=== PATIENT | female | born 1990 | race African-American/Black ===

== ENCOUNTER 2017-10-13 11:06 | Observation (INO) | payer MEDICARE, OTHER ==
[~2017-10-13] VITALS: Ht 167.6 cm; Wt 77.6 kg
[~2017-10-13 11:06] MED LIST: CIPRO500 MG OR; GLIPIZIDE5 M2 PO; GLUCOPHAGE500 MG PO; LEVEMIR FLEXPEN SC; NAPROSYN500 MG PO
[2017-10-13] MEDS ORDERED: ZOFRAN ODT4 MG PO (11:34)
[2017-10-13] MEDS ORDERED: NEXIUM40 M1 PO (11:34)
[2017-10-13 11:52] LABS: HEMATOCRIT 39.7 % (37.0-47.0); IMMATURE GRANULOCYTES 0.5 % (0.0-1.0); MEAN CELL VOLUME 90.8 fL CALC (80.0-100.0); MEAN CORPUSCULAR HGB 29.7 pG CALC (26.0-32.0); MEAN CORPUSCULAR HGB CONC 32.7 g/L CALC (32.0-36.0); NEUT# 14.67 thou/uL (2.00-7.15); RED BLOOD COUNT 4.37 mill/uL (4.20-5.60); RED CELL DISTRI WIDTH 13.1 % (11.5-15.5)
[2017-10-13 12:11] LABS: ALBUMIN 3.8 g/dL (3.2-5.0); ALKALINE PHOSPHATASE 114 u/l (38-126); ANION GAP 20 (6-22 (CALC)); BILIRUBIN, TOTAL 0.6 mg/dL (0.0-1.4); BUN 13 mg/dL (7-17); BUN/CREATININE RATIO 22 (12-20 (CALC)); CARBON DIOXIDE 21 mmol/l (22-30); CHLORIDE 98 mmol/l (95-108); CREATININE 0.6 mg/dL (0.5-1.0); GFR > 60 ML/MIN (>=60 (CALC)); GFR FOR AFR.AMER. > 60 ML/MIN (>=60 (CALC)); POTASSIUM 4.4 mmol/l (3.5-5.1); SGOT/AST 10 u/l (14-36); SGPT/ALT 25 u/l (9-52); SODIUM 134 mmol/l (137-146); TOTAL PROTEIN 7.4 g/dL (6.3-8.2)
[2017-10-13] MEDS ORDERED: LEVEMIR FL100 UNIT/M SC (13:36)
[2017-10-13 14:00] VITALS: BP 123/85
[2017-10-13 14:09] LABS: URINE BILIRUBIN - DIPSTICK NEGATIVE (NEGATIVE); URINE BLOOD DIPSTICK MODERATE (NEGATIVE); URINE COLOR YELLOW; URINE GLUCOSE - DIPSTICK 100 mg/dL (NEGATIVE); URINE KETONE 40 mg/dL (NEGATIVE); URINE PROTEIN - DIPSTICK 30 mg/dL (NEG-TRACE); URINE SPECIFIC GRAVITY 1.025; URINE UROBILINOGEN - DIPSTICK 0.2 E.U./dL (0.2)
[2017-10-13 14:10] LABS: URINE CLARITY CLOUDY; URINE NITRITE - DIPSTICK POSITIVE (Negative)
[2017-10-13 14:11] LABS: URINE LEUK ESTERASE TRACE (NEGATIVE)
[2017-10-13 14:16] LABS: URINE BACTERIA MANY hpf; URINE EPITHELIAL CELLS FEW EPI/hpf (0-FEW); URINE WBC 50-100 WBC/hpf (0-5)
[2017-10-13 18:13] LABS: CHOLESTEROL HDL RATIO 3.4 (<4.4 (CALC)); MAGNESIUM 1.5 mg/dL (1.6-2.3)
[2017-10-13 19:30] VITALS: BP 113/76; BP 162/82
[2017-10-14 04:30] VITALS: BP 101/63
[2017-10-14 05:51] LABS: HEMATOCRIT 34.5 % (37.0-47.0); HEMOGLOBIN 11.5 g/dl (12.0-16.0); IMMATURE GRANULOCYTES 0.4 % (0.0-1.0); MEAN CELL VOLUME 91.5 fL CALC (80.0-100.0); MEAN CORPUSCULAR HGB 30.5 pG CALC (26.0-32.0); MEAN CORPUSCULAR HGB CONC 33.3 g/L CALC (32.0-36.0); NEUT# 8.93 thou/uL (2.00-7.15); RED BLOOD COUNT 3.77 mill/uL (4.20-5.60); RED CELL DISTRI WIDTH 13.3 % (11.5-15.5)
[2017-10-14 06:02] LABS: ANION GAP 15 (6-22 (CALC)); BUN 12 mg/dL (7-17); BUN/CREATININE RATIO 19 (12-20 (CALC)); CARBON DIOXIDE 23 mmol/l (22-30); CHLORIDE 105 mmol/l (95-108); CREATININE 0.6 mg/dL (0.5-1.0); GFR > 60 ML/MIN (>=60 (CALC)); GFR FOR AFR.AMER. > 60 ML/MIN (>=60 (CALC)); MAGNESIUM 1.7 mg/dL (1.6-2.3); POTASSIUM 3.8 mmol/l (3.5-5.1); SODIUM 140 mmol/l (137-146)
[2017-10-14 07:46] VITALS: BP 108/66
[2017-10-14] MEDS ORDERED: KEFLEX500 M1 PO (13:19)
[2017-10-14] MEDS ORDERED: CIPROFLOXACN500 MG PO (21:42)
== END 2017-10-14 14:00 | disposition home or self-care (01) ==
LOC: ED 11:06 → ED-I 13:14 → ED 13:27 → MS2 13:28
PROVIDERS: Emergency Medicine; Nurse Practitioner Family; ADMIT Internal Medicine; ATTEND Internal Medicine
DX: E10.65 Type 1 diabetes mellitus with hyperglycemia (principal); E86.0 Dehydration; N39.0 Urinary tract infection, site not specified; F79 Unspecified intellectual disabilities; B96.20 Unspecified Escherichia coli [E. coli] as the cause of diseases classified elsewhere; Z91.14 Patient's other noncompliance with medication regimen; Z79.4 Long term (current) use of insulin

== ENCOUNTER 2017-10-14 19:11 | Emergency (ER) | payer MEDICARE, OTHER ==
[~2017-10-14] VITALS: Ht 167.6 cm; Wt 79.6 kg
[~2017-10-14 19:11] MED LIST changes: +KEFLEX500 M1 PO; +LEVEMIR FL100 UNIT/M SC; +NEXIUM40 M1 PO; +ZOFRAN ODT4 MG PO
[2017-10-14 20:10] LABS: HEMATOCRIT 38.9 % (37.0-47.0); HEMOGLOBIN 12.6 g/dl (12.0-16.0); IMMATURE GRANULOCYTES 0.4 % (0.0-1.0); MEAN CELL VOLUME 92.2 fL CALC (80.0-100.0); MEAN CORPUSCULAR HGB 29.9 pG CALC (26.0-32.0); MEAN CORPUSCULAR HGB CONC 32.4 g/L CALC (32.0-36.0); NEUT# 8.55 thou/uL (2.00-7.15); RED BLOOD COUNT 4.22 mill/uL (4.20-5.60); RED CELL DISTRI WIDTH 13.5 % (11.5-15.5)
[2017-10-14 20:11] LABS: URINE BILIRUBIN - DIPSTICK NEGATIVE (NEGATIVE); URINE BLOOD DIPSTICK SMALL (NEGATIVE); URINE COLOR YELLOW; URINE GLUCOSE - DIPSTICK NEGATIVE (NEGATIVE); URINE KETONE 15 mg/dL (NEGATIVE); URINE NITRITE - DIPSTICK NEGATIVE (Negative); URINE PROTEIN - DIPSTICK NEGATIVE (NEG-TRACE); URINE UROBILINOGEN - DIPSTICK 0.2 E.U./dL (0.2)
[2017-10-14 20:14] LABS: URINE CLARITY CLEAR; URINE LEUK ESTERASE SMALL (NEGATIVE)
[2017-10-14 20:15] LABS: ALBUMIN 3.9 g/dL (3.2-5.0); ALKALINE PHOSPHATASE 96 u/l (38-126); ANION GAP 18 (6-22 (CALC)); BILIRUBIN, TOTAL 0.3 mg/dL (0.0-1.4); BUN 13 mg/dL (7-17); BUN/CREATININE RATIO 19 (12-20 (CALC)); CARBON DIOXIDE 23 mmol/l (22-30); CHLORIDE 104 mmol/l (95-108); CREATININE 0.7 mg/dL (0.5-1.0); GFR > 60 ML/MIN (>=60 (CALC)); GFR FOR AFR.AMER. > 60 ML/MIN (>=60 (CALC)); POTASSIUM 3.7 mmol/l (3.5-5.1); SGOT/AST 17 u/l (14-36); SGPT/ALT 28 u/l (9-52); SODIUM 142 mmol/l (137-146); TOTAL PROTEIN 7.9 g/dL (6.3-8.2)
[2017-10-14 20:22] LABS: URINE BACTERIA FEW hpf; URINE RBC 0-2 RBC/hpf (0-5); URINE SQUAMOUS EPITHELIAL CELL RARE EPI/hpf (0-FEW); URINE WBC 20-50 WBC/hpf (0-5)
[2017-10-14 21:40] VITALS: BP 129/73
[2017-10-14] MEDS ORDERED: CIPROFLOXACN500 MG PO (21:42)
== END 2017-10-14 21:40 | disposition home or self-care (01) ==
LOC: ED 19:11
PROVIDERS: Emergency Medicine
DX: N39.0 Urinary tract infection, site not specified (principal); E11.9 Type 2 diabetes mellitus without complications

== ENCOUNTER 2017-12-21 14:51 | Emergency (ER) | payer MEDICARE, OTHER ==
[~2017-12-21] VITALS: Ht 167.6 cm; Wt 70.0 kg
[~2017-12-21 14:51] MED LIST changes: +CIPROFLOXACN500 MG PO
[2017-12-21] MEDS ORDERED: CLEOCIN300 MG PO (15:12)
[2017-12-21 15:16] VITALS: BP 128/56
== END 2017-12-21 15:18 | disposition home or self-care (01) ==
LOC: ED 14:51
DX: L02.424 Furuncle of left upper limb (principal)

== ENCOUNTER 2018-02-14 09:14 | Emergency (ER) | payer MEDICARE, OTHER ==
[~2018-02-14] VITALS: Ht 167.6 cm; Wt 68.0 kg
[~2018-02-14 09:14] MED LIST changes: +CLEOCIN300 MG PO
[2018-02-14 10:24] VITALS: BP 112/81
== END 2018-02-14 10:24 | disposition home or self-care (01) ==
LOC: ED 09:14
DX: M79.671 Pain in right foot (principal)

== ENCOUNTER 2018-06-08 13:04 | Emergency (ER) | payer MEDICARE, MEDICAID ==
[~2018-06-08] VITALS: Ht 167.6 cm; Wt 72.6 kg
[2018-06-08] MEDS ORDERED: TORADOL PO (14:10)
[2018-06-08 14:29] VITALS: BP 111/74
== END 2018-06-08 14:29 | disposition home or self-care (01) ==
LOC: ED 13:04
DX: S63.502A Unspecified sprain of left wrist, initial encounter (principal); W17.89XA Other fall from one level to another, initial encounter; Y93.I9 Activity, other involving external motion; Y92.009 Unspecified place in unspecified non-institutional (private) residence as the place of occurrence of the external cause

== ENCOUNTER 2018-12-28 15:18 | Emergency (ER) | payer MEDICARE, OTHER ==
[~2018-12-28] VITALS: Ht 167.6 cm; Wt 68.0 kg
[~2018-12-28 15:18] MED LIST changes: +TORADOL PO
[2018-12-28] MEDS ORDERED: METFORMIN500 MG PO (15:43)
[2018-12-28] MEDS ORDERED: GLIPIZIDE5 M2 PO (15:43)
[2018-12-28] MEDS ORDERED: AUGMENTIN500TAB PO (16:13)
[2018-12-28] MEDS ORDERED: CORTISPORIN OTI10 M2 AU (16:13)
[2018-12-28 16:20] VITALS: BP 118/80
== END 2018-12-28 16:20 | disposition home or self-care (01) ==
LOC: ED 15:18
DX: H60.92 Unspecified otitis externa, left ear (principal); H66.92 Otitis media, unspecified, left ear; E11.9 Type 2 diabetes mellitus without complications; Z79.4 Long term (current) use of insulin

== ENCOUNTER 2019-04-25 10:06 | Emergency (ER) | payer MEDICARE, OTHER ==
[~2019-04-25] VITALS: Ht 167.6 cm; Wt 71.0 kg
[~2019-04-25 10:06] MED LIST changes: +AUGMENTIN500TAB PO; +CORTISPORIN OTI10 M2 AU; +METFORMIN500 MG PO
[2019-04-25] MEDS ORDERED: IBUPROFEN600 MG PO (11:24)
[2019-04-25 11:33] VITALS: BP 112/63
== END 2019-04-25 11:33 | disposition home or self-care (01) ==
LOC: ED 10:06
DX: S90.31XA Contusion of right foot, initial encounter (principal); M21.611 Bunion of right foot; W17.89XA Other fall from one level to another, initial encounter; Y93.I9 Activity, other involving external motion

== ENCOUNTER 2019-05-18 09:55 | Inpatient (IN) | payer MEDICARE, MEDICAID ==
[~2019-05-18] VITALS: Ht 167.6 cm; Wt 75.0 kg
[2019-05-18] VITALS (9 sets, daily range): BP systolic 100–124; BP diastolic 56–85
[~2019-05-18 09:55] MED LIST changes: +IBUPROFEN600 MG PO
--- NOTE | 2019-05-18 10:11 | NUR ---
PATIENT AMBULATED TO ROOM WITH STEADY GAIT AND PHYSICIAN NOTIFIED OF PATIENT STATUS
[2019-05-18 10:44] LABS: HEMATOCRIT 43.4 % (37.0-47.0); HEMOGLOBIN 13.8 g/dl (12.0-16.0); IMMATURE GRANULOCYTES 0.4 % (0.0-5.0); MEAN CELL VOLUME 92.3 fL CALC (80.0-100.0); MEAN CORPUSCULAR HGB 29.4 pG CALC (26.0-32.0); MEAN CORPUSCULAR HGB CONC 31.8 g/L CALC (32.0-36.0); RED BLOOD COUNT 4.7 mill/uL (4.20-5.60); RED CELL DISTRI WIDTH 12.9 % (11.5-15.5)
--- NOTE | 2019-05-18 10:50 | NUR ---
IVF INFUSING TO LAC AT THIS TIME; PO FLUIDS GIVEN; MONITORING DEVICES IN PLACE; VSS; WILL CONTINUE TO MONITOR
[2019-05-18 10:57] LABS: HCG SERUM/URINE (NEG/POS) NEGATIVE (NEGATIVE)
[2019-05-18 11:00] LABS: ALBUMIN 4.6 g/dL (3.2-5.0); ALKALINE PHOSPHATASE 110 u/l (38-126); BILIRUBIN, TOTAL 0.5 mg/dL (0.0-1.4); BUN 15 mg/dL (7-17); BUN/CREATININE RATIO 19 (12-20 (CALC)); CHLORIDE 99 mmol/l (95-108); CREATININE 0.8 mg/dL (0.5-1.0); GFR > 60 ML/MIN (>=60 (CALC)); GFR FOR AFR.AMER. > 60 ML/MIN (>=60 (CALC)); LIPASE 62 u/l (23-300); SODIUM 133 mmol/l (137-146)
[2019-05-18 11:12] LABS: ANION GAP 30 (6-22 (CALC)); SGOT/AST 23 u/l (14-36)
[2019-05-18 11:15] LABS: CARBON DIOXIDE 9 mmol/l (22-30)
[2019-05-18 12:58] LABS: URINE BILIRUBIN - DIPSTICK NEGATIVE (NEGATIVE); URINE BLOOD DIPSTICK NEGATIVE (NEGATIVE); URINE COLOR YELLOW; URINE GLUCOSE - DIPSTICK 500 mg/dL (NEGATIVE); URINE KETONE >=80 mg/dL (NEGATIVE); URINE LEUK ESTERASE NEGATIVE (NEGATIVE); URINE NITRITE - DIPSTICK NEGATIVE (Negative); URINE PROTEIN - DIPSTICK NEGATIVE (NEG-TRACE); URINE SPECIFIC GRAVITY 1.025; URINE UROBILINOGEN - DIPSTICK 0.2 E.U./dL (0.2)
--- NOTE | 2019-05-18 13:07 | NUR ---
ER DEPT [employer]LE[employer] COMPUTING SOFTWARE ENGINEER REQUESTED I TAKE REPORT NOW AND THEY WILL HOLD PT UNTIL ORDERS GET PLACED. REPORT RECVD FROM FLORENCE DONAHUE.
[2019-05-18 13:12] LABS: ANION GAP 26 (6-22 (CALC)); BUN 13 mg/dL (7-17); BUN/CREATININE RATIO 18 (12-20 (CALC)); CHLORIDE 100 mmol/l (95-108); CREATININE 0.7 mg/dL (0.5-1.0); GFR > 60 ML/MIN (>=60 (CALC)); GFR FOR AFR.AMER. > 60 ML/MIN (>=60 (CALC)); POTASSIUM 5.1 mmol/l (3.5-5.1); SODIUM 135 mmol/l (137-146)
--- NOTE | 2019-05-18 13:13 | NUR ---
PT TO ICU4 BY STRETCHER WITH TELE & IV INSULIN AND NS. PT ABLE TO TRANSFER TO NEW BED. PLACED ON MONITORS. EDUCATED ON CALLBELL & BED CONTROLS.
--- NOTE | 2019-05-18 13:15 | NUR ---
Admission Note Report Given to: FLORENCE HUMMEL Transported by: Wheelchair X Stretcher Transported with: X Nurse Transporter X Patent IV O2 X Drug Abuse Social Worker Location: X ICU MS2
[2019-05-18 13:27] LABS: CARBON DIOXIDE 14 mmol/l (22-30)
--- NOTE | 2019-05-18 13:58 | NUR ---
DR WERNER @BEDSIDE; ASSESSING PT & DISCUSSING POC. CALLED [facility] FOR NAME OF RECENT RX x2 BUT THEY SAY SHE HASNT USED THEIR PHARMACY SINCE 2017.
--- NOTE | 2019-05-18 15:45 | NUR ---
ACCEDGARD 245, ESTABLISHED 2ND IV SITE #22 TO LW.
--- NOTE | 2019-05-18 16:48 | NUR ---
2 FEMALE VISITORS @BEDSIDE.
[2019-05-18 17:09] LABS: BUN 11 mg/dL (7-17); BUN/CREATININE RATIO 20 (12-20 (CALC)); CHLORIDE 104 mmol/l (95-108); CREATININE 0.5 mg/dL (0.5-1.0); GFR > 60 ML/MIN (>=60 (CALC)); GFR FOR AFR.AMER. > 60 ML/MIN (>=60 (CALC)); SODIUM 137 mmol/l (137-146)
--- NOTE | 2019-05-18 17:09 | NUR ---
PT DISCONNECTED FROM MONITORS TO USE BATHROOM. PT HAD STEADY GAIT, PUSHING IV POLE.
[2019-05-18 17:11] LABS: ANION GAP 18 (6-22 (CALC)); CARBON DIOXIDE 19 mmol/l (22-30)
--- NOTE | 2019-05-18 18:05 | NUR ---
EXPLAINED TO MOM & GRANDMA & PT ABOUT NPO WHILE ON INSULIN DRIP. PT GIVEN PITCHER OF WATER & TRINIDAD ASHBY. ANSWERED QUESTIONS ABOUT TEST RESULTS.
--- NOTE | 2019-05-18 19:25 | NUR ---
REPORT GIVEN BY SHAHEED HENRIQUEZ. PATIENT RESTING IN BED WATCHING TV, FAMILY PRESENT AT BEDSIDE. RESP EVEN AND UNLABORED, PRODUCTIVE COUGH PRESENT. INSULIN AND IV FLUIDS INFUSING. NO S/S OF DISTRESS NOTED. PLAN OF CARE DISCUSSED. PATIENT INFORMED TO CALL WITH ANY QUESTIONS OR CONCERNS. FALL PRECAUTIONS IN PLACE. ASSESMENT COMPLETED AT THIS TIME.
--- NOTE | 2019-05-18 19:47 | NUR ---
ACCU CHECK= 167, AG=14, K=4. IV FLUIDS CHANGED TO D5 1/2 NS AND INSULIN DRIP CHANGED TO 2 UNITS.
[2019-05-18 20:36] LABS: ANION GAP 17 (6-22 (CALC)); BUN 11 mg/dL (7-17); BUN/CREATININE RATIO 20 (12-20 (CALC)); CARBON DIOXIDE 21 mmol/l (22-30); CHLORIDE 103 mmol/l (95-108); CREATININE 0.6 mg/dL (0.5-1.0); GFR > 60 ML/MIN (>=60 (CALC)); GFR FOR AFR.AMER. > 60 ML/MIN (>=60 (CALC)); POTASSIUM 3.8 mmol/l (3.5-5.1); SODIUM 137 mmol/l (137-146)
--- NOTE | 2019-05-18 20:50 | NUR ---
FLUIDS STOPPED PER MD ORDER.
--- NOTE | 2019-05-18 22:24 | NUR ---
INSULIN DRIP TURNED OFF AT 2224 PER MD ORDERS.
--- NOTE | 2019-05-18 23:42 | NUR ---
PATIENT RESTING WITH EYES CLOSED. RESP EVEN AND UNLABORED. NO S/S OF DISTRESS NOTED.
[2019-05-19] VITALS (9 sets, daily range): BP systolic 100–131; BP diastolic 60–70
--- NOTE | 2019-05-19 02:11 | NUR ---
PATIENT RESTING WITH EYES CLOSED. RESP EVEN AND UNLABORED. NO S/S OF DISTRESS NOTED.
--- NOTE | 2019-05-19 05:37 | NUR ---
PATIENT STATES SHE IS FEELING MUCH BETTER THIS MORNING. RESP EVEN AND UNLABORED. NO S/S OF DISTRESS NOTED.
[2019-05-19 06:32] LABS: ANION GAP 15 (6-22 (CALC)); BUN 14 mg/dL (7-17); BUN/CREATININE RATIO 29 (12-20 (CALC)); CARBON DIOXIDE 22 mmol/l (22-30); CHLORIDE 104 mmol/l (95-108); CREATININE 0.5 mg/dL (0.5-1.0); GFR > 60 ML/MIN (>=60 (CALC)); GFR FOR AFR.AMER. > 60 ML/MIN (>=60 (CALC)); MAGNESIUM 1.4 mg/dL (1.6-2.3); POTASSIUM 3.8 mmol/l (3.5-5.1); SODIUM 138 mmol/l (137-146)
[2019-05-19] MEDS ORDERED: ZITHROMAX500 MG PO (08:31)
[2019-05-19] MEDS ORDERED: TESSALON PERLE100 MG PO (08:31)
[2019-05-19] MEDS ORDERED: LEVEMIR FL100 UNIT/M SC (08:31)
[2019-10-22] MEDS ORDERED: SULFAMETHOXAZOL1 TA1 PO (11:33)
== END 2019-05-19 13:00 | disposition home or self-care (01) | DRG 639 ==
LOC: ED 09:55 → ED-I 11:35 → ED 11:51 → ICU 11:52
PROVIDERS: Family Medicine; ADMIT Internal Medicine; ATTEND Internal Medicine
DX: E10.10 Type 1 diabetes mellitus with ketoacidosis without coma (principal); E86.0 Dehydration; J40 Bronchitis, not specified as acute or chronic; F79 Unspecified intellectual disabilities; T38.3X6A Underdosing of insulin and oral hypoglycemic [antidiabetic] drugs, initial encounter; Z91.128 Patient's intentional underdosing of medication regimen for other reason; Z79.4 Long term (current) use of insulin
CPT/HCPCS: J3475

== ENCOUNTER 2019-06-06 | Emergency (ER) | payer MEDICARE, MEDICAID ==
[~2019-06-06] MED LIST changes: +TESSALON PERLE100 MG PO; +ZITHROMAX500 MG PO
[2019-10-22] MEDS ORDERED: SULFAMETHOXAZOL1 TA1 PO (11:33)
== END 2019-06-06 15:45 | disposition home or self-care (01) ==
DX: S60.012A Contusion of left thumb without damage to nail, initial encounter (principal); E11.9 Type 2 diabetes mellitus without complications; W50.0XXA Accidental hit or strike by another person, initial encounter; Y93.89 Activity, other specified; Y92.009 Unspecified place in unspecified non-institutional (private) residence as the place of occurrence of the external cause; Z79.4 Long term (current) use of insulin

== ENCOUNTER 2019-07-21 | Emergency (ER) | payer MEDICARE, MEDICAID ==
[2019-07-21] MEDS ORDERED: BACTRIM DS1 TAB PO (21:12)
[2019-10-22] MEDS ORDERED: SULFAMETHOXAZOL1 TA1 PO (11:33)
== END 2019-07-21 21:57 | disposition home or self-care (01) ==
DX: L03.011 Cellulitis of right finger (principal); E11.9 Type 2 diabetes mellitus without complications

== ENCOUNTER 2019-09-09 | Emergency (ER) | payer MEDICARE, MEDICAID ==
[~2019-09-09] MED LIST changes: +BACTRIM DS1 TAB PO
[2019-10-22] MEDS ORDERED: SULFAMETHOXAZOL1 TA1 PO (11:33)
== END 2019-09-09 16:48 | disposition home or self-care (01) ==
DX: S60.012A Contusion of left thumb without damage to nail, initial encounter (principal); S60.222A Contusion of left hand, initial encounter; E11.9 Type 2 diabetes mellitus without complications; W17.2XXA Fall into hole, initial encounter; Y92.89 Other specified places as the place of occurrence of the external cause; Z79.4 Long term (current) use of insulin

== ENCOUNTER 2019-10-15 13:19 | Emergency (ER) | payer MEDICARE, MEDICAID ==
[2019-10-15] MEDS ORDERED: METFORMIN500 M2 PO (15:55)
[2019-10-15] MEDS ORDERED: BACTRIM DS1 TAB PO (16:13)
[2019-10-15 16:20] VITALS: BP 116/81
[2019-10-22] MEDS ORDERED: SULFAMETHOXAZOL1 TA1 PO (11:33)
== END 2019-10-15 16:38 | disposition home or self-care (01) ==
LOC: ED 13:19
PROC: 0X940ZX Drainage of Right Axilla, Open Approach, Diagnostic (ICD-10-PCS; principal; 2019-10-15)
DX: L02.411 Cutaneous abscess of right axilla (principal); E11.9 Type 2 diabetes mellitus without complications; B95.62 Methicillin resistant Staphylococcus aureus infection as the cause of diseases classified elsewhere; Z79.4 Long term (current) use of insulin

== ENCOUNTER 2019-10-17 09:21 | Emergency (ER) | payer MEDICARE, MEDICAID ==
[~2019-10-17 09:21] MED LIST changes: +METFORMIN500 M2 PO
[2019-10-17] MEDS ORDERED: CLEOCIN300 MG PO (10:14)
[2019-10-17] MEDS ORDERED: ULTRAM50 MG PO (10:14)
[2019-10-17 10:37] VITALS: BP 112/77
[2019-10-22] MEDS ORDERED: SULFAMETHOXAZOL1 TA1 PO (11:33)
== END 2019-10-17 10:25 | disposition home or self-care (01) ==
LOC: ED 09:21
DX: Z48.01 Encounter for change or removal of surgical wound dressing (principal); E11.9 Type 2 diabetes mellitus without complications

== ENCOUNTER 2019-10-18 14:35 | Emergency (ER) | payer MEDICARE, MEDICAID ==
[~2019-10-18 14:35] MED LIST changes: +ULTRAM50 MG PO
[2019-10-18 14:56] VITALS: BP 119/71
[2019-10-22] MEDS ORDERED: SULFAMETHOXAZOL1 TA1 PO (11:33)
== END 2019-10-18 15:06 | disposition home or self-care (01) ==
LOC: ED 14:35
DX: Z48.01 Encounter for change or removal of surgical wound dressing (principal); E11.9 Type 2 diabetes mellitus without complications; Z79.4 Long term (current) use of insulin

== ENCOUNTER 2019-12-14 13:29 | Emergency (ER) | payer MEDICARE, MEDICAID ==
[~2019-12-14] VITALS: Ht 167.6 cm; Wt 72.0 kg
[~2019-12-14 13:29] MED LIST changes: +SULFAMETHOXAZOL1 TA1 PO
[2019-12-14] MEDS ORDERED: LEVEMIR FL100 UNIT/M SC (14:00)
[2019-12-14 15:55] VITALS: BP 111/69
== END 2019-12-14 15:55 | disposition home or self-care (01) ==
LOC: ED 13:29
DX: M79.642 Pain in left hand (principal); E11.9 Type 2 diabetes mellitus without complications; Z79.4 Long term (current) use of insulin

== ENCOUNTER 2020-05-13 19:31 | Emergency (ER) | payer MEDICARE, MEDICAID ==
[~2020-05-13] VITALS: Ht 167.6 cm; Wt 71.0 kg
[2020-05-13] MEDS ORDERED: METFORMIN500 M2 PO (20:30)
[2020-05-13 20:39] LABS: URINE BILIRUBIN - DIPSTICK NEGATIVE (NEGATIVE); URINE BLOOD DIPSTICK MODERATE (NEGATIVE); URINE COLOR YELLOW; URINE GLUCOSE - DIPSTICK >=1000 mg/dL (NEGATIVE); URINE KETONE TRACE mg/dL (NEGATIVE); URINE LEUK ESTERASE NEGATIVE (NEGATIVE); URINE NITRITE - DIPSTICK NEGATIVE (Negative); URINE PROTEIN - DIPSTICK NEGATIVE (NEG-TRACE); URINE UROBILINOGEN - DIPSTICK 0.2 E.U./dL (0.2)
[2020-05-13] MEDS ORDERED: CYCLOBENZAPRINE10 MG PO (21:48)
[2020-05-13] MEDS ORDERED: NAPROXEN500 MG PO (21:48)
[2020-05-13 22:12] VITALS: BP 121/87
== END 2020-05-13 22:12 | disposition home or self-care (01) ==
LOC: ED 19:31
PROVIDERS: Emergency Medicine
DX: M51.86 Other intervertebral disc disorders, lumbar region (principal); E11.9 Type 2 diabetes mellitus without complications; Z79.4 Long term (current) use of insulin

== ENCOUNTER 2020-10-11 13:34 | Emergency (ER) | payer MEDICARE, MEDICAID ==
[~2020-10-11] VITALS: Ht 167.6 cm; Wt 71.0 kg
[~2020-10-11 13:34] MED LIST changes: +CYCLOBENZAPRINE10 MG PO; +NAPROXEN500 MG PO
[2020-10-11] MEDS ORDERED: NAPROXEN500 MG PO (14:23)
[2020-10-11 14:32] VITALS: BP 130/83
== END 2020-10-11 14:32 | disposition home or self-care (01) ==
LOC: ED 13:34
DX: S63.502A Unspecified sprain of left wrist, initial encounter (principal); E11.9 Type 2 diabetes mellitus without complications; X58.XXXA Exposure to other specified factors, initial encounter; Y93.67 Activity, basketball; Z79.84 Long term (current) use of oral hypoglycemic drugs

== ENCOUNTER 2020-11-27 00:14 | Emergency (ER) | payer MEDICARE, MEDICAID ==
[~2020-11-27] VITALS: Ht 167.6 cm; Wt 71.0 kg
[2020-11-27 00:58] LABS: HEMATOCRIT 43.1 % (37.0-47.0); HEMOGLOBIN 14.2 g/dl (12.0-16.0); IMMATURE GRANULOCYTES 0.2 % (0.0-5.0); MEAN CELL VOLUME 88.9 fL CALC (80.0-100.0); MEAN CORPUSCULAR HGB 29.3 pG CALC (26.0-32.0); MEAN CORPUSCULAR HGB CONC 32.9 g/dL CAL (32.0-36.0); NEUT# 6.19 thou/uL (2.00-7.15); RED BLOOD COUNT 4.85 mill/uL (4.20-5.60); RED CELL DISTRI WIDTH 12.6 % (11.5-15.5)
[2020-11-27 01:12] LABS: ALBUMIN 4.6 g/dL (3.2-5.0); ALKALINE PHOSPHATASE 148 u/l (38-126); AMYLASE 72 u/l (30-110); ANION GAP 17 (6-22 (CALC)); BILIRUBIN, TOTAL 0.4 mg/dL (0.0-1.4); BUN 10 mg/dL (7-17); BUN/CREATININE RATIO 17 (12-20 (CALC)); CARBON DIOXIDE 25 mmol/l (22-30); CHLORIDE 95 mmol/l (95-108); CREATININE 0.6 mg/dL (0.5-1.0); GFR > 60 ML/MIN (>=60 (CALC)); GFR FOR AFR.AMER. > 60 ML/MIN (>=60 (CALC)); LIPASE 133 u/l (23-300); POTASSIUM 4.2 mmol/l (3.5-5.1); SGOT/AST 15 u/l (14-36); SODIUM 133 mmol/l (137-146)
[2020-11-27] MEDS ORDERED: LEVEMIR100 UNIT SC (02:04)
[2020-11-27 02:30] VITALS: BP 108/66
== END 2020-11-27 02:33 | disposition home or self-care (01) ==
LOC: ED 00:14
PROVIDERS: Family Medicine
DX: K59.00 Constipation, unspecified (principal); E11.65 Type 2 diabetes mellitus with hyperglycemia; Z79.4 Long term (current) use of insulin; T38.3X6A Underdosing of insulin and oral hypoglycemic [antidiabetic] drugs, initial encounter; Z91.128 Patient's intentional underdosing of medication regimen for other reason

== ENCOUNTER 2020-11-27 18:36 | Emergency (ER) | payer MEDICARE, MEDICAID ==
[~2020-11-27] VITALS: Ht 167.6 cm; Wt 67.7 kg
[~2020-11-27 18:36] MED LIST changes: +LEVEMIR100 UNIT SC
[2020-11-27 20:56] LABS: ANION GAP 13 (6-22 (CALC)); BUN 10 mg/dL (7-17); BUN/CREATININE RATIO 18 (12-20 (CALC)); CARBON DIOXIDE 26 mmol/l (22-30); CHLORIDE 100 mmol/l (95-108); CREATININE 0.5 mg/dL (0.5-1.0); GFR > 60 ML/MIN (>=60 (CALC)); GFR FOR AFR.AMER. > 60 ML/MIN (>=60 (CALC)); POTASSIUM 4.3 mmol/l (3.5-5.1); SODIUM 134 mmol/l (137-146)
[2020-11-27 22:35] VITALS: BP 126/83
== END 2020-11-27 22:35 | disposition home or self-care (01) ==
LOC: ED 18:36
PROVIDERS: Family Medicine
DX: E11.65 Type 2 diabetes mellitus with hyperglycemia (principal); Z79.4 Long term (current) use of insulin; T38.3X6A Underdosing of insulin and oral hypoglycemic [antidiabetic] drugs, initial encounter; Z91.128 Patient's intentional underdosing of medication regimen for other reason

== ENCOUNTER 2021-01-15 15:47 | Emergency (ER) | payer MEDICARE, MEDICAID ==
[2021-05-05] MEDS ORDERED: METFORMIN HCL1000 MG PO (10:54)
== END 2021-01-15 16:05 | disposition left against medical advice (07) ==
LOC: ED 15:47 → LWOBS 15:56
DX: Z53.21 Procedure and treatment not carried out due to patient leaving prior to being seen by health care provider (principal)

== ENCOUNTER 2021-03-15 13:09 | Emergency (ER) | payer MEDICARE, MEDICAID ==
[~2021-03-15] VITALS: Ht 167.6 cm; Wt 65.0 kg
[2021-03-15 14:33] LABS: URINE BILIRUBIN - DIPSTICK NEGATIVE (NEGATIVE); URINE BLOOD DIPSTICK NEGATIVE (NEGATIVE); URINE COLOR YELLOW; URINE GLUCOSE - DIPSTICK >=1000 mg/dL (NEGATIVE); URINE KETONE 40 mg/dL (NEGATIVE); URINE LEUK ESTERASE NEGATIVE (NEGATIVE); URINE PH 5.5 (4.5-8.0); URINE PROTEIN - DIPSTICK NEGATIVE (NEG-TRACE); URINE SPECIFIC GRAVITY <=1.005; URINE UROBILINOGEN - DIPSTICK 0.2 E.U./dL (0.2)
[2021-03-15 14:36] LABS: URINE NITRITE - DIPSTICK NEGATIVE (Negative)
[2021-03-15 15:24] LABS: HEMATOCRIT 38.4 % (37.0-47.0); HEMOGLOBIN 12.4 g/dl (12.0-16.0); IMMATURE GRANULOCYTES 0.1 % (0.0-5.0); MEAN CELL VOLUME 93.7 fL CALC (80.0-100.0); MEAN CORPUSCULAR HGB 30.2 pG CALC (26.0-32.0); MEAN CORPUSCULAR HGB CONC 32.3 g/dL CAL (32.0-36.0); NEUT# 8.58 thou/uL (2.00-7.15); RED BLOOD COUNT 4.1 mill/uL (4.20-5.60); RED CELL DISTRI WIDTH 12.6 % (11.5-15.5)
[2021-03-15 15:38] LABS: ALBUMIN 4.1 g/dL (3.2-5.0); ALKALINE PHOSPHATASE 87 u/l (38-126); AMYLASE 52 u/l (30-110); ANION GAP 15 (6-22 (CALC)); BUN 12 mg/dL (7-17); BUN/CREATININE RATIO 21 (12-20 (CALC)); CARBON DIOXIDE 26 mmol/l (22-30); CHLORIDE 100 mmol/l (95-108); CREATININE 0.6 mg/dL (0.5-1.0); GFR > 60 ML/MIN (>=60 (CALC)); GFR FOR AFR.AMER. > 60 ML/MIN (>=60 (CALC)); LIPASE 65 u/l (23-300); POTASSIUM 4.8 mmol/l (3.5-5.1); SGOT/AST 14 u/l (14-36); SODIUM 136 mmol/l (137-146); TOTAL PROTEIN 7.4 g/dL (6.3-8.2)
[2021-03-15 15:47] LABS: BILIRUBIN, TOTAL 0.7 mg/dL (0.0-1.4)
[2021-03-15] MEDS ORDERED: ZOFRAN4 MG/TAB PO (16:26)
[2021-03-15 17:00] VITALS: BP 110/70
== END 2021-03-15 17:00 | disposition home or self-care (01) ==
LOC: ED 13:09
DX: R11.2 Nausea with vomiting, unspecified (principal); E11.65 Type 2 diabetes mellitus with hyperglycemia; Z79.84 Long term (current) use of oral hypoglycemic drugs; Z79.4 Long term (current) use of insulin

== ENCOUNTER 2021-05-12 11:47 | Emergency (ER) | payer MEDICARE, MEDICAID ==
[~2021-05-12] VITALS: Ht 167.6 cm; Wt 70.0 kg
[~2021-05-12 11:47] MED LIST changes: +METFORMIN HCL1000 MG PO; +ZOFRAN4 MG/TAB PO
[2021-05-12 14:55] VITALS: BP 127/83
== END 2021-05-12 14:55 | disposition home or self-care (01) ==
LOC: ED 11:47
DX: M79.671 Pain in right foot (principal); E11.9 Type 2 diabetes mellitus without complications; W19.XXXA Unspecified fall, initial encounter

== ENCOUNTER 2021-06-10 16:29 | Emergency (ER) | payer MEDICARE, MEDICAID ==
[~2021-06-10] VITALS: Ht 167.6 cm; Wt 45.0 kg
[2021-06-10 18:38] LABS: HEMOGLOBIN 14.2 g/dl (12.0-16.0); IMMATURE GRANULOCYTES 0.3 % (0.0-5.0); MEAN CELL VOLUME 91.9 fL CALC (80.0-100.0); MEAN CORPUSCULAR HGB 29.6 pG CALC (26.0-32.0); MEAN CORPUSCULAR HGB CONC 32.3 g/dL CAL (32.0-36.0); NEUT# 4.87 thou/uL (2.00-7.15); RED BLOOD COUNT 4.79 mill/uL (4.20-5.60)
[2021-06-10 18:56] LABS: ALBUMIN 4.2 g/dL (3.2-5.0); ANION GAP 14 (6-22 (CALC)); BILIRUBIN, TOTAL 0.3 mg/dL (0.0-1.4); BUN 7 mg/dL (7-17); BUN/CREATININE RATIO 14 (12-20 (CALC)); CARBON DIOXIDE 26 mmol/l (22-30); CHLORIDE 98 mmol/l (95-108); CREATININE 0.5 mg/dL (0.5-1.0); GFR > 60 ML/MIN (>=60 (CALC)); GFR FOR AFR.AMER. > 60 ML/MIN (>=60 (CALC)); POTASSIUM 4.2 mmol/l (3.5-5.1); SGOT/AST 14 u/l (14-36); SODIUM 134 mmol/l (137-146)
[2021-06-10 19:03] LABS: ALKALINE PHOSPHATASE 141 u/l (38-126); TOTAL PROTEIN 8.7 g/dL (6.3-8.2)
[2021-06-10 19:07] LABS: MYOGLOBIN 15 ng/mL (0 - 62)
[2021-06-10 19:41] LABS: URINE BILIRUBIN - DIPSTICK NEGATIVE (NEGATIVE); URINE BLOOD DIPSTICK NEGATIVE (NEGATIVE); URINE COLOR YELLOW; URINE GLUCOSE - DIPSTICK >=1000 mg/dL (NEGATIVE); URINE KETONE 15 mg/dL (NEGATIVE); URINE LEUK ESTERASE NEGATIVE (NEGATIVE); URINE PROTEIN - DIPSTICK NEGATIVE (NEG-TRACE); URINE SPECIFIC GRAVITY 1.015; URINE UROBILINOGEN - DIPSTICK 0.2 E.U./dL (0.2)
[2021-06-10 19:43] LABS: URINE NITRITE - DIPSTICK NEGATIVE (Negative)
[2021-06-10 22:30] VITALS: BP 102/64
== END 2021-06-10 22:30 | disposition home or self-care (01) ==
LOC: ED 16:29
PROVIDERS: Emergency Medicine
DX: E11.65 Type 2 diabetes mellitus with hyperglycemia (principal); T38.3X6A Underdosing of insulin and oral hypoglycemic [antidiabetic] drugs, initial encounter; Z91.128 Patient's intentional underdosing of medication regimen for other reason; Z79.4 Long term (current) use of insulin

== ENCOUNTER 2021-11-21 13:36 | Emergency (ER) | payer MEDICARE, MEDICAID ==
[~2021-11-21] VITALS: Ht 167.6 cm; Wt 66.8 kg
[2021-11-21 14:54] LABS: ALBUMIN 4.2 g/dL (3.2-5.0); ALKALINE PHOSPHATASE 87 u/l (38-126); AMYLASE 73 u/l (30-110); ANION GAP 11 (6-22 (CALC)); BILIRUBIN, TOTAL 0.3 mg/dL (0.0-1.4); BUN 14 mg/dL (7-17); BUN/CREATININE RATIO 23 (12-20 (CALC)); CARBON DIOXIDE 26 mmol/l (22-30); CHLORIDE 103 mmol/l (95-108); CREATININE 0.6 mg/dL (0.5-1.0); GFR FOR AFR.AMER. > 60 ML/MIN (>=60 (CALC)); GFR OTHER RACES > 60 ML/MIN (>=60 (CALC)); LIPASE 49 u/l (23-300); POTASSIUM 4.2 mmol/l (3.5-5.1); SGOT/AST 15 u/l (14-36); SODIUM 136 mmol/l (137-146); TOTAL PROTEIN 7.9 g/dL (6.3-8.2)
[2021-11-21 15:05] LABS: MYOGLOBIN 12 ng/mL (0 - 62)
[2021-11-21 15:18] LABS: HEMATOCRIT 38.5 % (37.0-47.0); HEMOGLOBIN 12.4 g/dl (12.0-16.0); IMMATURE GRANULOCYTES 0.5 % (0.0-5.0); MEAN CELL VOLUME 91.2 fL CALC (80.0-100.0); MEAN CORPUSCULAR HGB 29.4 pG CALC (26.0-32.0); MEAN CORPUSCULAR HGB CONC 32.2 g/dL CAL (32.0-36.0); NEUT# 5.57 thou/uL (2.00-7.15); RED BLOOD COUNT 4.22 mill/uL (4.20-5.60); RED CELL DISTRI WIDTH 12.9 % (11.5-15.5)
[2021-11-21] MEDS ORDERED: NAPROXEN500 MG PO (16:04)
[2021-11-21] MEDS ORDERED: ONDANSETRON4 MG PO (16:04)
[2021-11-21 16:46] VITALS: BP 112/77
== END 2021-11-21 16:46 | disposition home or self-care (01) ==
LOC: ED 13:36
PROVIDERS: Emergency Medicine
DX: R07.89 Other chest pain (principal); E11.65 Type 2 diabetes mellitus with hyperglycemia; Z20.822 Contact with and (suspected) exposure to COVID-19

== ENCOUNTER 2021-11-28 20:12 | Emergency (ER) | payer MEDICARE, MEDICAID ==
[~2021-11-28] VITALS: Ht 167.6 cm; Wt 80.0 kg
[2021-11-28] VITALS (14 sets, daily range): BP systolic 77–117; BP diastolic 51–78
[~2021-11-28 20:12] MED LIST changes: +ONDANSETRON4 MG PO
[2021-11-28 20:55] LABS: HEMOGLOBIN 13.5 g/dl (12.0-16.0); IMMATURE GRANULOCYTES 0.2 % (0.0-5.0); MEAN CELL VOLUME 90.3 fL CALC (80.0-100.0); MEAN CORPUSCULAR HGB 29.7 pG CALC (26.0-32.0); MEAN CORPUSCULAR HGB CONC 32.9 g/dL CAL (32.0-36.0); NEUT# 10.82 thou/uL (2.00-7.15); RED BLOOD COUNT 4.54 mill/uL (4.20-5.60); RED CELL DISTRI WIDTH 12.6 % (11.5-15.5)
[2021-11-28 21:12] LABS: ALBUMIN 4.4 g/dL (3.2-5.0); ALKALINE PHOSPHATASE 101 u/l (38-126); ANION GAP 14 (6-22 (CALC)); BUN 9 mg/dL (7-17); BUN/CREATININE RATIO 14 (12-20 (CALC)); CARBON DIOXIDE 23 mmol/l (22-30); CHLORIDE 102 mmol/l (95-108); CREATININE 0.6 mg/dL (0.5-1.0); GFR FOR AFR.AMER. > 60 ML/MIN (>=60 (CALC)); GFR OTHER RACES > 60 ML/MIN (>=60 (CALC)); POTASSIUM 4.5 mmol/l (3.5-5.1); SGOT/AST 18 u/l (14-36); SODIUM 135 mmol/l (137-146); TOTAL PROTEIN 8.6 g/dL (6.3-8.2)
[2021-11-28 21:14] LABS: BILIRUBIN, TOTAL 0.9 mg/dL (0.0-1.4)
[2021-11-28 23:55] LABS: URINE BLOOD DIPSTICK MODERATE (NEGATIVE); URINE COLOR YELLOW; URINE GLUCOSE - DIPSTICK >=1000 mg/dL (NEGATIVE); URINE KETONE 40 mg/dL (NEGATIVE); URINE LEUK ESTERASE NEGATIVE (NEGATIVE); URINE PH 5.5 (4.5-8.0); URINE PROTEIN - DIPSTICK 30 mg/dL (NEG-TRACE); URINE SPECIFIC GRAVITY >=1.030
[2021-11-28 23:56] LABS: URINE BILIRUBIN - DIPSTICK SMALL (NEGATIVE); URINE NITRITE - DIPSTICK POSITIVE (Negative)
[2021-11-29] VITALS: BP 93/65
[2021-11-29 00:11] LABS: URINE BACTERIA MANY hpf; URINE SQUAMOUS EPITHELIAL CELL FEW EPI/hpf (0-FEW); URINE WBC 20-50 WBC/hpf (0-5)
[2021-11-29 00:15] VITALS: BP 81/45
[2021-11-29] MEDS ORDERED: BACTRIM DS1 TAB PO (00:27)
[2021-11-29 00:33] VITALS: BP 67/46
[2021-11-29 00:36] VITALS: BP 91/62
[2021-11-29 00:45] VITALS: BP 99/63
[2021-11-29 00:50] VITALS: BP 99/63
== END 2021-11-29 00:58 | disposition home or self-care (01) ==
LOC: ED 20:12
PROVIDERS: Family Medicine
DX: N39.0 Urinary tract infection, site not specified (principal); E11.9 Type 2 diabetes mellitus without complications; Z20.822 Contact with and (suspected) exposure to COVID-19; B96.20 Unspecified Escherichia coli [E. coli] as the cause of diseases classified elsewhere

== ENCOUNTER 2021-12-01 19:21 | Inpatient (IN) | payer MEDICARE, MEDICAID ==
[~2021-12-01] VITALS: Ht 167.6 cm; Wt 79.5 kg
[2021-12-01] VITALS (7 sets, daily range): BP systolic 112–129; BP diastolic 80–89
--- NOTE | 2021-12-01 20:00 | NUR ---
PT TO ROOM 9 VIA W/C
--- NOTE | 2021-12-01 20:10 | NUR ---
DR. CUADRA AT BEDSIDE DISCUSSING TROPONIN RESULTS AND NEED FOR TRANSFER.
[2021-12-01 20:27] LABS: HEMOGLOBIN 13.4 g/dl (12.0-16.0); IMMATURE GRANULOCYTES 0.4 % (0.0-5.0); MEAN CELL VOLUME 90.7 fL CALC (80.0-100.0); MEAN CORPUSCULAR HGB 29.6 pG CALC (26.0-32.0); MEAN CORPUSCULAR HGB CONC 32.7 g/dL CAL (32.0-36.0); NEUT# 6.42 thou/uL (2.00-7.15); RED BLOOD COUNT 4.52 mill/uL (4.20-5.60); RED CELL DISTRI WIDTH 12.9 % (11.5-15.5)
[2021-12-01] MEDS ORDERED: HUMULIN R500 UNIT/M (20:29)
--- NOTE | 2021-12-01 20:40 | NUR ---
DAUGHTER AND PT ADVISED OF 23 MINUTE ETA FOR AEROMED FERRY BOAT CAPTAIN.
[2021-12-01 20:42] LABS: HCG SERUM/URINE (NEG/POS) NEGATIVE (NEGATIVE)
[2021-12-01 20:44] LABS: ALBUMIN 4.3 g/dL (3.2-5.0); ALKALINE PHOSPHATASE 128 u/l (38-126); AMYLASE 61 u/l (30-110); BUN 15 mg/dL (7-17); BUN/CREATININE RATIO 17 (12-20 (CALC)); CHLORIDE 104 mmol/l (95-108); CREATININE 0.9 mg/dL (0.5-1.0); GFR FOR AFR.AMER. > 60 ML/MIN (>=60 (CALC)); GFR OTHER RACES > 60 ML/MIN (>=60 (CALC)); LIPASE 57 u/l (23-300); POTASSIUM 4.5 mmol/l (3.5-5.1); SGOT/AST 26 u/l (14-36); SODIUM 137 mmol/l (137-146); TOTAL PROTEIN 8.9 g/dL (6.3-8.2)
[2021-12-01 20:54] LABS: ANION GAP 27 (6-22 (CALC)); BILIRUBIN, TOTAL 0.4 mg/dL (0.0-1.4); CARBON DIOXIDE 11 mmol/l (22-30)
[2021-12-01 21:15] LABS: URINE BLOOD DIPSTICK LARGE (NEGATIVE); URINE COLOR YELLOW; URINE GLUCOSE - DIPSTICK >=1000 mg/dL (NEGATIVE); URINE KETONE >=80 mg/dL (NEGATIVE); URINE LEUK ESTERASE NEGATIVE (NEGATIVE); URINE PROTEIN - DIPSTICK 30 mg/dL (NEG-TRACE); URINE SPECIFIC GRAVITY >=1.030; URINE UROBILINOGEN - DIPSTICK 0.2 E.U./dL (0.2)
[2021-12-01 21:18] LABS: URINE BILIRUBIN - DIPSTICK SMALL (NEGATIVE); URINE NITRITE - DIPSTICK NEGATIVE (Negative)
[2021-12-01 21:25] LABS: URINE RBC 25-50 RBC/hpf (0-5); URINE SQUAMOUS EPITHELIAL CELL FEW EPI/hpf (0-FEW)
--- NOTE | 2021-12-01 22:18 | NUR ---
POINT OF CARE GLUCOSE 237mg/dl
--- NOTE | 2021-12-01 23:10 | NUR ---
REPORT CALLED TO Ketty ZEPEDA LPN IN ICU.
--- NOTE | 2021-12-01 23:26 | NUR ---
31 yr old black female admitted to icu7 per stretcher from er. transferred self onto bed. bed weight obtained. equipment monitor phototypesetting shows sinus tach. ivf infusing well. c/o nausea but no emesis. requested po fluids. request denied. history obtained per pt & er record. oriented to room. fall precautions cont.
--- NOTE | 2021-12-01 23:26 | NUR ---
PT TRANSFERRED TO ICU VIA STRETCHER, ACCOMPANIED BY RN.
--- NOTE | 2021-12-01 23:45 | NUR ---
lab here. blood drawn.
[2021-12-02] VITALS (45 sets, daily range): BP systolic 91–134; BP diastolic 51–93
[2021-12-02 00:15] LABS: ANION GAP 21 (6-22 (CALC)); BUN 14 mg/dL (7-17); BUN/CREATININE RATIO 21 (12-20 (CALC)); CARBON DIOXIDE 12 mmol/l (22-30); CHLORIDE 112 mmol/l (95-108); CREATININE 0.7 mg/dL (0.5-1.0); GFR FOR AFR.AMER. > 60 ML/MIN (>=60 (CALC)); GFR OTHER RACES > 60 ML/MIN (>=60 (CALC)); POTASSIUM 4.7 mmol/l (3.5-5.1); SODIUM 140 mmol/l (137-146)
[2021-12-02] MEDS ORDERED: METFORMIN HCL1000 MG PO (01:26)
--- NOTE | 2021-12-02 02:00 | NUR ---
eyes closed. no distress.
--- NOTE | 2021-12-02 04:30 | NUR ---
lab here. blood drawn.
[2021-12-02 08:20] LABS: ANION GAP 13 (6-22 (CALC)); BUN 13 mg/dL (7-17); BUN/CREATININE RATIO 21 (12-20 (CALC)); CHLORIDE 113 mmol/l (95-108); CREATININE 0.6 mg/dL (0.5-1.0); GFR FOR AFR.AMER. > 60 ML/MIN (>=60 (CALC)); GFR OTHER RACES > 60 ML/MIN (>=60 (CALC)); POTASSIUM 3.9 mmol/l (3.5-5.1); SODIUM 139 mmol/l (137-146)
[2021-12-02 08:21] LABS: CARBON DIOXIDE 17 mmol/l (22-30)
[2021-12-02] MEDS ORDERED: LANTUS SOL100 UNIT/M SC (08:41)
--- NOTE | 2021-12-02 13:46 | NUR ---
Spoke with patients sister Ella @[phone], sister would like to speak with case management regarding helping the patient find a way to be more compliant with monitoring her blood sugar. Information passed to case management to conference sister in when speakingwith the patient before discharge.
--- NOTE | 2021-12-02 17:26 | NUR ---
Patient to transfer to room 277 after shift change.
--- NOTE | 2021-12-02 20:00 | NUR ---
awake. no acute distress. engine monitor shows sinus tach. po fluids taken well. menses conts. up ad gus in room. pt instructed about impending move. verbalized understanding.
--- NOTE | 2021-12-02 22:00 | NUR ---
watching tv. no distress.
--- NOTE | 2021-12-02 23:15 | NUR ---
report given to mely leal. transferred per w/c to rm 279.
--- NOTE | 2021-12-02 23:26 | NUR ---
Patient arrived from icu via wheel chair, alert and oriented x 4; no pain reported, resp are even and unlabored on room air, lungs are diminished allthroughout. Patient c/o nausea, emesis bag at hand, some spitting noted, appears saliva, will medicate with zofran per MD orders. Patient is requesting a coke, educated about diabetic diet, voices understanding, will give a diet coke.
--- NOTE | 2021-12-03 00:11 | NUR ---
Medicated with zofran per MD orders for nausea, will reasses in an hour, call vickers at reach.
--- NOTE | 2021-12-03 04:00 | NUR ---
Patient is resting in bed, denies any nausea, no pain or needs reported, call vickers at reach, will follow up closely, NS at 80ml/hr infusing to 22g right hand, no s/s of infiltration noted.
[2021-12-03 04:32] VITALS: BP 130/89
[2021-12-03 05:34] LABS: HEMATOCRIT 35.7 % (37.0-47.0); HEMOGLOBIN 11.9 g/dl (12.0-16.0); MEAN CELL VOLUME 90.4 fL CALC (80.0-100.0); MEAN CORPUSCULAR HGB 30.1 pG CALC (26.0-32.0); MEAN CORPUSCULAR HGB CONC 33.3 g/dL CAL (32.0-36.0); RED BLOOD COUNT 3.95 mill/uL (4.20-5.60)
--- NOTE | 2021-12-03 05:57 | NUR ---
Patient is resting in bed with eyes closed, no pain or needs reported, respirations are even and unlabored on room air, will continue to monitor closely, call vickers at reach.
[2021-12-03 06:10] LABS: ANION GAP 14 (6-22 (CALC)); BUN 11 mg/dL (7-17); BUN/CREATININE RATIO 21 (12-20 (CALC)); CHLORIDE 107 mmol/l (95-108); CREATININE 0.5 mg/dL (0.5-1.0); GFR FOR AFR.AMER. > 60 ML/MIN (>=60 (CALC)); GFR OTHER RACES > 60 ML/MIN (>=60 (CALC)); MAGNESIUM 2.1 mg/dL (1.6-2.3); SODIUM 139 mmol/l (137-146)
[2021-12-03 06:15] LABS: CARBON DIOXIDE 22 mmol/l (22-30)
[2021-12-03 06:44] VITALS: BP 113/82
--- NOTE | 2021-12-03 07:00 | NUR ---
RECIEVED REPORT FROM PAU DUMONT
--- NOTE | 2021-12-03 07:47 | NUR ---
PT RESTING IN SEMI FOWLERS POSITION. PT A/OX3. ASSESSMENT COMPLETED. RESPIRATIONS EVEN AND UNLABORED. LUNG SOUNDS CLEAR. HEART RHYTHM NORMAL. BOWEL SOUNDS ACTIVE. PT DENIES OF ANY NAUSEA. #22G LW, #22G RH, #20G RAC PATENT. IVF INFUSING PER ORDER. SKIN INTACT.GLUCOSE MONITORING RESULTING IN 196, COVERAGE ADMINSIETRED PER ORDER. PT REQUEST TO SHOWER. PT SET UP FOR SHOWER. DENIES OF ANY ADDITIONAL NEEDS. ALL SAFTEY PRECAUTIONS ARE IN PLACE WITH CALL LIGHT IN REACH
[2021-12-03] MEDS ORDERED: KEFLEX500 MG PO (10:58)
[2021-12-03] MEDS ORDERED: NEURONTIN100 MG PO (11:09)
--- NOTE | 2021-12-03 11:45 | NUR ---
PT EDUCATED ON DC INSTRUCTIONS AND NEW MEDCATIONS. PT VERBALIZED UNDERSTANDING. IV REMOVED WITH CATHS INTACT. PT AGREES TO STAY FOR LUNCH, INSULIN COVERAGE ADMINISTERED.
--- NOTE | 2021-12-03 13:13 | NUR ---
Discharge instructions given. Patient verbalizes understanding of same. Discharged in stable condition via Ambulatory to Home with volunteer. All belongings sent with STAFF.
== END 2021-12-03 13:13 | disposition home or self-care (01) | DRG 638 ==
LOC: ED 19:21 → ED-I 22:13 → ED 22:33 → ICU 22:33 → MS2 12-02 23:26
PROVIDERS: Emergency Medicine; ADMIT Internal Medicine; ATTEND Internal Medicine
DX: E11.10 Type 2 diabetes mellitus with ketoacidosis without coma (principal); N39.0 Urinary tract infection, site not specified; F79 Unspecified intellectual disabilities; B96.20 Unspecified Escherichia coli [E. coli] as the cause of diseases classified elsewhere; Z79.84 Long term (current) use of oral hypoglycemic drugs; Z79.4 Long term (current) use of insulin; Z20.822 Contact with and (suspected) exposure to COVID-19

== ENCOUNTER 2022-06-23 11:15 | Emergency (ER) | payer MEDICARE, MEDICAID ==
[~2022-06-23] VITALS: Ht 167.6 cm; Wt 71.0 kg
[~2022-06-23 11:15] MED LIST changes: +HUMULIN R500 UNIT/M; +KEFLEX500 MG PO; +LANTUS SOL100 UNIT/M SC; +NEURONTIN100 MG PO
[2022-06-23 11:28] VITALS: BP 112/82
[2022-06-23 11:30] VITALS: BP 116/81
[2022-06-23] MEDS ORDERED: TOBRADEX 2.5 ML OS ×2 (11:38→13:44)
[2022-06-23 11:45] VITALS: BP 116/81
[2022-06-23 11:46] VITALS: BP 116/81
== END 2022-06-23 11:54 | disposition home or self-care (01) ==
LOC: ED 11:15
DX: H10.9 Unspecified conjunctivitis (principal); E11.9 Type 2 diabetes mellitus without complications; Z79.84 Long term (current) use of oral hypoglycemic drugs; Z79.4 Long term (current) use of insulin

== ENCOUNTER 2022-07-10 11:49 | Emergency (ER) | payer MEDICARE, MEDICAID ==
[2022-07-10] VITALS (12 sets, daily range): BP systolic 107–131; BP diastolic 76–97
[~2022-07-10] VITALS: Ht 167.6 cm; Wt 66.2 kg
[~2022-07-10 11:49] MED LIST changes: +TOBRADEX 2.5 ML OS
[2022-07-10 14:04] LABS: BASO% 0.4 % (0-3); IMMATURE GRANULOCYTES 0.2 % (0.0-5.0); LYMPH% 14.7 % (15-41); MEAN CELL VOLUME 90.4 fL CALC (80.0-100.0); MEAN CORPUSCULAR HGB 28.9 pG CALC (26.0-32.0); MONO% 5.4 % (2-13); NEUT# 7.48 thou/uL (2.00-7.15); NEUT% 78.3 % (42-76); RED BLOOD COUNT 4.98 mill/uL (4.20-5.60); RED CELL DISTRI WIDTH 12.4 % (11.5-15.5)
[2022-07-10 14:06] LABS: ALBUMIN 4.8 g/dL (3.2-5.0); ALKALINE PHOSPHATASE 132 u/l (38-126); BUN 10 mg/dL (7-17); BUN/CREATININE RATIO 18 (12-20 (CALC)); CHLORIDE 99 mmol/l (95-108); CREATININE 0.6 mg/dL (0.5-1.0); GFR FOR AFR.AMER. > 60 ML/MIN (>=60 (CALC)); GFR OTHER RACES > 60 ML/MIN (>=60 (CALC)); POTASSIUM 4.6 mmol/l (3.5-5.1); SGOT/AST 26 u/l (14-36); SODIUM 135 mmol/l (137-146); TOTAL PROTEIN 9.2 g/dL (6.3-8.2)
[2022-07-10 14:07] LABS: HEMOGLOBIN 14.4 g/dl (12.0-16.0)
[2022-07-10 14:12] LABS: ANION GAP 14 (6-22 (CALC)); BILIRUBIN, TOTAL 0.7 mg/dL (0.02-1.3); CARBON DIOXIDE 27 mmol/l (22-30)
[2022-07-10 15:44] LABS: URINE BILIRUBIN - DIPSTICK NEGATIVE (NEGATIVE); URINE BLOOD DIPSTICK NEGATIVE (NEGATIVE); URINE COLOR YELLOW; URINE GLUCOSE - DIPSTICK >=1000 mg/dL (NEGATIVE); URINE KETONE 40 mg/dL (NEGATIVE); URINE LEUK ESTERASE NEGATIVE (NEGATIVE); URINE PH 5.5 (4.5-8.0); URINE PROTEIN - DIPSTICK NEGATIVE (NEG-TRACE); URINE SPECIFIC GRAVITY 1.025; URINE UROBILINOGEN - DIPSTICK 0.2 E.U./dL (0.2)
[2022-07-10 15:46] LABS: URINE NITRITE - DIPSTICK NEGATIVE (Negative)
[2022-07-10 18:10] LABS: BUN 9 mg/dL (7-17); BUN/CREATININE RATIO 22 (12-20 (CALC)); CHLORIDE 107 mmol/l (95-108); CREATININE 0.4 mg/dL (0.5-1.0); GFR FOR AFR.AMER. > 60 ML/MIN (>=60 (CALC)); GFR OTHER RACES > 60 ML/MIN (>=60 (CALC)); SODIUM 135 mmol/l (137-146)
[2022-07-10 18:12] LABS: ANION GAP 14 (6-22 (CALC)); CARBON DIOXIDE 20 mmol/l (22-30); POTASSIUM 5.5 mmol/l (3.5-5.1)
[2022-07-10 20:03] LABS: BUN 9 mg/dL (7-17); BUN/CREATININE RATIO 20 (12-20 (CALC)); CARBON DIOXIDE 24 mmol/l (22-30); CHLORIDE 103 mmol/l (95-108); CREATININE 0.5 mg/dL (0.5-1.0); GFR FOR AFR.AMER. > 60 ML/MIN (>=60 (CALC)); GFR OTHER RACES > 60 ML/MIN (>=60 (CALC)); SODIUM 135 mmol/l (137-146)
[2022-07-10 20:04] LABS: ANION GAP 12 (6-22 (CALC)); POTASSIUM 4.2 mmol/l (3.5-5.1)
[2022-07-10] MEDS ORDERED: LANTUS SOL100 UNIT/M SC (20:12)
[2022-07-10] MEDS ORDERED: GENTAMICIN SULF5 ML OD (20:30)
== END 2022-07-10 20:46 | disposition home or self-care (01) ==
LOC: ED 11:49
PROVIDERS: Emergency Medicine
DX: E11.65 Type 2 diabetes mellitus with hyperglycemia (principal); H57.89 Other specified disorders of eye and adnexa; Z79.84 Long term (current) use of oral hypoglycemic drugs; Z79.4 Long term (current) use of insulin

== ENCOUNTER 2024-01-03 14:13 | Emergency (ER) | payer MEDICARE, MEDICAID ==
[~2024-01-03] VITALS: Ht 167.6 cm; Wt 70.0 kg
[~2024-01-03 14:13] MED LIST changes: +GENTAMICIN SULF5 ML OD
[2024-01-03 14:28] VITALS: BP 140/85
[2024-01-03 14:30] VITALS: BP 139/96
[2024-01-03] MEDS ORDERED: NAPROXEN 250 MG/TAB PO ONE (14:50)
[2024-01-03] MEDS ORDERED: METHOCARBAMOL 500 MG/TAB PO ONE (14:50)
[2024-01-03 15:00] VITALS: BP 128/94
[2024-01-03] MEDS ORDERED: NAPROXEN500 MG PO (15:51)
[2024-01-03 15:56] VITALS: BP 128/94
== END 2024-01-03 16:01 | disposition home or self-care (01) ==
LOC: ED 14:13
DX: S46.912A Strain of unspecified muscle, fascia and tendon at shoulder and upper arm level, left arm, initial encounter (principal); E11.9 Type 2 diabetes mellitus without complications; V28.01XA Electric (assisted) bicycle driver injured in noncollision transport accident in nontraffic accident, initial encounter; Y93.55 Activity, bike riding; Z79.4 Long term (current) use of insulin

== ENCOUNTER 2024-04-27 08:34 | Emergency (ER) | payer MEDICARE, MEDICAID ==
[~2024-04-27] VITALS: Ht 167.6 cm; Wt 72.0 kg
[2024-04-27] MEDS ORDERED: DEXTROMETHORPHAN-Guaifenesin 20-200 MG/10 ML UDC PO ONE (08:50)
[2024-04-27 08:51] VITALS: BP 135/93
[2024-04-27] MEDS ORDERED: BENZONATATE 200 MG/CAP PO ONE (08:55)
[2024-04-27 09:00] VITALS: BP 127/89
[2024-04-27] MEDS ORDERED: VENTOLIN HFA108 MCG IN (11:51)
[2024-04-27] MEDS ORDERED: ZITHROMAX250 MG PO (11:51)
[2024-04-27 11:59] VITALS: BP 127/89
== END 2024-04-27 12:05 | disposition home or self-care (01) ==
LOC: ED 08:34
DX: R05.9 Cough, unspecified (principal); E11.9 Type 2 diabetes mellitus without complications; Z79.84 Long term (current) use of oral hypoglycemic drugs; Z79.4 Long term (current) use of insulin; Z20.822 Contact with and (suspected) exposure to COVID-19